=== PATIENT | male | born 1985 | race African-American/Black ===

== ENCOUNTER 2016-11-01 08:38 | Emergency (ER) | payer SELFPAY ==
[~2016-11-01] VITALS: Ht 170.2 cm; Wt 77.1 kg
[2016-11-01 09:18] VITALS: BP 124/74
--- NOTE | 2016-11-01 09:42 | PHYS DOC ---
Past Medical History Past Medical History: Other Additional Past Medical Histor: hemorrhoids Past Surgical History: Other Additional Past Surgical Histo: hemorrhoidectomy Drug Use: Methamphetamine Adult General Chief Complaint Chief Complaint: RECTAL BLEED [facility] HPI Patient is a 31 year old male presents to the emergency department with a history of rectal bleeding on and off for the last year or so. Patient states in the last week he has had increase rectal bleeding with every bowel movement. He states yesterday he had about 1/4 of cup of blood noted. Patient states he has had a hemorrhoidectomy within the last 7 or so years in [place]. Patient states he has a history of constipation. He denies light headedness, dizziness, nausea or vomiting. Review of Systems Review of Systems Constitutional: Denies fever or chills [] Eyes: Denies change in visual acuity, redness, or eye pain [] HENT: Denies nasal congestion or sore throat [] Respiratory: Denies cough or shortness of breath [] Cardiovascular: No additional information not addressed in HPI [] GI: Denies abdominal pain, nausea, vomiting, bloody stools or diarrhea. C/o rectal bleeding : Denies dysuria or hematuria [] Musculoskeletal: Denies back pain or joint pain [] Integument: Denies rash or skin lesions [] Neurologic: Denies headache, focal weakness or sensory changes [] Endocrine: Denies polyuria or polydipsia [] Allergies Allergies Allergies Coded Allergies Type Severity Reaction Last Updated Verified No Known Drug Allergies 11/01/16 No Physical Exam Physical Exam Constitutional: Well developed, well nourished, no acute distress, non-toxic appearance. [] HENT: Normocephalic, atraumatic, bilateral external ears normal, oropharynx moist, no oral exudates, nose normal. [] Eyes: PERRLA, EOMI, conjunctiva normal, no discharge. [] Neck: Normal range of motion, no tenderness, supple, no stridor. [] Cardiovascular:Heart rate regular rhythm, no murmur [] Lungs & Thorax: Bilateral breath sounds clear to auscultation [] Abdomen: Bowel sounds hypoactive, soft, no tenderness, no masses, no pulsatile masses. [] Skin: Warm, dry, no erythema, no rash. [] Back: No tenderness Extremities: No tenderness, no cyanosis, no clubbing, ROM intact, no edema. [] Neurologic: Alert and oriented X 3, normal motor function, normal sensory function, no focal deficits noted. [] Psychologic: Affect normal, judgement normal, mood normal. [] Current Patient Data Vital Signs Vital Signs Date Time Temp Pulse Resp B/P (MAP) Pulse Ox O2 Delivery O2 Flow Rate FiO2 11/01/16 09:18 98.6 56 16 124/74 (91) 97 Room Air 98.6 Lab Values Laboratory Tests Test 11/01/16 09:30 11/01/16 09:40 Stool Occult Blood Positive (NEG) White Blood Count 6.0 x10^3/uL (4.0-11.0) Red Blood Count 4.90 x10^6/uL (4.30-5.70) Hemoglobin 15.4 g/dL (13.0-17.5) Hematocrit 45.4 % (39.0-53.0) Mean Corpuscular Volume 93 fL (79-100) Mean Corpuscular Hemoglobin 31 pg (25-35) Mean Corpuscular Hemoglobin Concent 34 g/dL (31-37) Red Cell Distribution Width 14.1 % (11.5-14.5) Platelet Count 217 x10^3/uL (140-400) Neutrophils (%) (Auto) 64 % (31-73) Lymphocytes (%) (Auto) 26 % (24-48) Monocytes (%) (Auto) 8 % (0-9) Eosinophils (%) (Auto) 2 % (0-3) Basophils (%) (Auto) 1 % (0-3) Neutrophils # (Auto) 3.8 x10^3uL (1.8-7.7) Lymphocytes # (Auto) 1.6 x10^3/uL (1.0-4.8) Monocytes # (Auto) 0.5 x10^3/uL (0.0-1.1) Eosinophils # (Auto) 0.1 x10^3/uL (0.0-0.7) Basophils # (Auto) 0.0 x10^3/uL (0.0-0.2) Sodium Level 141 mmol/L (136-145) Potassium Level 3.9 mmol/L (3.5-5.1) Chloride Level 107 mmol/L (98-107) Carbon Dioxide Level 30 mmol/L (21-32) Anion Gap 4 (6-14) L Blood Urea Nitrogen 19 mg/dL (8-26) Creatinine 1.2 mg/dL (0.7-1.3) Estimated GFR (Cockcroft-Gault) 69.7 BUN/Creatinine Ratio 16 (6-20) Glucose Level 94 mg/dL (70-99) Calcium Level 8.4 mg/dL (8.5-10.1) L Total Bilirubin 0.3 mg/dL (0.2-1.0) Aspartate Amino Transferase (AST) 17 U/L (15-37) Alanine Aminotransferase (ALT) 23 U/L (16-63) Alkaline Phosphatase 53 U/L (46-116) Total Protein 7.2 g/dL (6.4-8.2) Albumin 3.8 g/dL (3.4-5.0) Albumin/Globulin Ratio 1.1 (1.0-1.7) Laboratory Tests 11/01/16 09:40 Laboratory Tests 11/01/16 09:40 EKG EKG [] Radiology/Procedures Radiology/Procedures [] Course & Med Decision Making Course & Med Decision Making Pertinent Labs and Imaging studies reviewed. (See chart for details) Rectal exam completed with KATHERIN Dwyer at bedside. No santosh blood noted with rectal exam, no fistula noted. No extra hemorrhoids noted. Occult blood was positive. CBC, CMP are within normal limits. Patient will be discharged home with recommendations to follow up with a GI physician for further evaluation. He was informed to return back to the emergency department if he has increased bleeding, lightheadedness dizziness. Patient was also instructed to use stool softener to prevent any type of constipation that may be an issue with bloody stools. Also recommended high-fiber diet. Patient will be discharged home in stable condition. As mentioned signs and symptoms above have been provided to patient. He agrees with discharge instructions. All questions have been answered for the patient at this time. Patient became upset with discharge instructions, stating that you are doing this because I have no insurance. Explained that patient that Hgb is normal he is not light headed, dizzy, and has not passed out. This has also been going on for a year and has recently became worse. Patient was explained that in his discharge instructions will have a GI doctor to followup, patient has chosen to leave without discharge instructions. Dragon Disclaimer Dragon Disclaimer This electronic medical record was generated, in whole or in part, using a voice recognition dictation system. Departure Departure Impression: Primary Impression: Rectal bleed Disposition: 01 HOME, SELF-CARE Condition: STABLE Referrals: ANTHONY LEE MD Patient Instructions: Rectal Bleeding, [id number] Additional Instructions: Your CBC which looks that her hemoglobin and tells about the amount of blood that you have anybody appears to be normal at this time. The rectal revealed a positive occult blood. It is recommended that you eat a high-fiber diet with lots of fruits and vegetables including lots of water. He may also use a stool softer to also help prevent constipation. Follow-up with a GI physician within the next week. Return back to the emergency department for signs and symptoms of become worse. JULIETH VALDEZ APRN Nov 01, 2016 09:42
[2016-11-01 09:57] LABS: CALCIUM 8.4 mg/dL (8.5-10.1); CREATININE 1.2 mg/dL (0.7-1.3); GFR 69.7; POTASSIUM 3.9 mmol/L (3.5-5.1)
[2016-11-01 09:59] LABS: BASO % 1 % (0-3); EOS % 2 % (0-3); HEMATOCRIT 45.4 % (39.0-53.0); HEMOGLOBIN 15.4 g/dL (13.0-17.5); LYMPH # 1.6 x10^3/uL (1.0-4.8); LYMPH % 26 % (24-48); MEAN CORPUSCULAR HEMOGLOBIN 31 pg (25-35); MEAN CORPUSCULAR HGB CONC 34 g/dL (31-37); MEAN CORPUSCULAR VOLUME 93 fL (79-100); MONO % 8 % (0-9); NEUT % 64 % (31-73); PLATELET COUNT 217 x10^3/uL (140-400); RED CELL DISTRIBUTION WIDTH 14.1 % (11.5-14.5)
[2016-11-01 10:03] LABS: ALBUMIN 3.8 g/dL (3.4-5.0); ALBUMIN/GLOBULIN RATIO 1.1 (1.0-1.7); TOTAL BILIRUBIN 0.3 mg/dL (0.2-1.0); TOTAL PROTEIN 7.2 g/dL (6.4-8.2)
[2016-11-01 10:05] LABS: NEG OBC FOB NEG; POS OBC FOB POS
== END 2016-11-01 10:23 | disposition home or self-care (01) ==
LOC: ER 08:38
DX: K62.5 Hemorrhage of anus and rectum (principal); F15.10 Other stimulant abuse, uncomplicated
CPT/HCPCS: 36415; 80053; 82274; 85027; 99284